=== PATIENT | female | born 1965 | race Caucasian/White ===

== ENCOUNTER 2016-07-23 09:45 | Emergency (ER) | payer SELFPAY ==
[2016-07-23 10:25] VITALS: BP 118/60
--- NOTE | 2016-07-23 10:59 | UC ---
FLU HPI - HPI Summary HPI Summary: 2 DAYS OF BODY ACHES, COUGH, CONGESTION, ST, [place]O AND LOOSE STOOLS. LOW GRADE FEVER HERE TODAY. FEELS "FOGGY". - History of Current Complaint Chief Complaint: UCGeneralIllness Stated Complaint: FLU LIKE COMPLAINT Time Seen by Provider: 07/23/16 10:37 Hx Obtained From: Patient Onset/Duration: Gradual Onset, Lasting Days, Still Present Severity Currently: Moderate Severity Initially: Moderate Pain Intensity: 8 Pain Scale Used: 0-10 Numeric Associated Signs & Symptoms: Positive: Fever, Myalgia, Cough, Sore Throat, Nasal Congestion, Headache, Diarrhea - Allergy/Home Medications Allergies/Adverse Reactions: Allergies Allergy/AdvReac Type Severity Reaction Status Date / Time Cefprozil [From Cefzil] Allergy Intermediate Hives Verified 06/27/15 17:31 Amoxicillin Allergy Unknown Verified 06/14/15 23:43 Reaction Details Clavulanic Acid Allergy Unknown Verified 06/14/15 23:43 [From Augmentin] Reaction Details Home Medications: Home Medications Allergy Pill 07/23/16 [History] PMH/Surg Hx/FS Hx/Imm Hx Endocrine History Of: Reports: Thyroid Disease, Hypothyroidism Cancer History Of: Denies: Breast Cancer - Surgical History Surgical History: Yes Surgery Procedure, Year, and Place: HYSTERECTOMY. FOOT SURGERY. EYE SURGERY - Family History Known Family History: Negative: Hypertension - Social History Alcohol Use: Occasionally Substance Use Type: None Smoking Status (MU): Never Smoked Tobacco Review of Systems Constitutional: Fever, Fatigue ENT: Sore Throat, Nasal Discharge Respiratory: Cough Cardiovascular: Negative Gastrointestinal: Diarrhea Musculoskeletal: Myalgia Neurological: Headache All Other Systems Reviewed And Are Negative: Yes Physical Exam Triage Information Reviewed: Yes Appearance: Well-Appearing, No Pain Distress, Well-Nourished Vital Signs: Initial Vital Signs Temp 100.6 F 07/23/16 10:21 Pulse 83 07/23/16 10:21 Resp 18 07/23/16 10:21 BP 118/60 07/23/16 10:21 Pulse Ox 95 07/23/16 10:21 Vital Signs Reviewed: Yes Eyes: Positive: Conjunctiva Clear ENT: Positive: Hearing grossly normal, Pharynx normal, TMs normal Neck: Positive: Supple, Nontender, No Lymphadenopathy Respiratory Exam: Normal Cardiovascular Exam: Normal Abdomen Description: Positive: Soft Musculoskeletal: Positive: No Edema Neurological: Positive: Alert Psychological: Positive: Age Appropriate Behavior Skin: Negative: rashes Flu Course/Dx - Differential Dx/Diagnosis Provider Diagnoses: FLU-LIKE ILLNESS Discharge - Discharge Plan Condition: Stable Disposition: HOME Patient Education Materials: Influenza (ED) Forms: *Work Release Referrals: Jesus Hart DO [Primary Care Provider] - If Needed Additional Instructions: YOUR SYMPTOMS SHOULD START TO IMPROVE OVER THE NEXT WEEK. REST, HYDRATE, OTC MEDS NEEDED FOR FEVER AND BODY ACHES. SEEK FOLLOW-UP IF NEEDED.
== END 2016-07-23 11:14 | disposition home or self-care (01) ==
LOC: UCEAST 09:45
DX: J11.1 Influenza due to unidentified influenza virus with other respiratory manifestations (principal); Z88.1 Allergy status to other antibiotic agents; Z88.0 Allergy status to penicillin
CPT/HCPCS: 99211; G0463

== ENCOUNTER 2017-01-19 17:23 | Emergency (ER) | payer BC ==
[2017-01-19 19:07] VITALS: BP 110/71
--- NOTE | 2017-01-19 19:45 | UC ---
Complaint Female HPI - HPI Summary HPI Summary: 51 yo female with painful labia sore x days no d/c no uti symptoms - History Of Current Complaint Chief Complaint: UCGU Stated Complaint: PERSONAL Time Seen by Provider: 01/19/17 18:46 Hx Obtained From: Patient Onset/Duration: Gradual Onset, Lasting Days Timing: Constant Severity Initially: Mild Severity Currently: Severe Pain Intensity: 8 Pain Scale Used: 0-10 Numeric Character: Sharp Aggravating Factor(s): Movement Alleviating Factor(s): Position Associated Signs And Symptoms: Positive: Genital Swelling - Allergies/Home Medications Allergies/Adverse Reactions: Allergies Allergy/AdvReac Type Severity Reaction Status Date / Time Cefprozil [From Cefzil] Allergy Intermediate Hives Verified 01/19/17 18:53 Amoxicillin Allergy Unknown Verified 01/19/17 18:53 Reaction Details Clavulanic Acid Allergy Unknown Verified 01/19/17 18:53 [From Augmentin] Reaction Details Home Medications: Home Medications Etodolac 200 mg PO BID 01/19/17 [History Confirmed 01/19/17] Loratadine 10 mg PO DAILY 01/19/17 [History Confirmed 01/19/17] PMH/Surg Hx/FS Hx/Imm Hx Previously Healthy: Yes - lymphedema - Surgical History Surgical History: Yes Surgery Procedure, Year, and Place: HYSTERECTOMY. FOOT SURGERY. EYE SURGERY - Family History Known Family History: Negative: Hypertension, Diabetes - Social History Alcohol Use: Occasionally Substance Use Type: None Smoking Status (MU): Never Smoked Tobacco Review of Systems Constitutional: Negative Skin: Negative Eyes: Negative ENT: Negative Respiratory: Negative Cardiovascular: Negative Gastrointestinal: Negative Genitourinary: Negative Motor: Negative Neurovascular: Negative Musculoskeletal: Negative Neurological: Negative Psychological: Negative All Other Systems Reviewed And Are Negative: Yes Physical Exam Triage Information Reviewed: Yes Appearance: Well-Appearing, No Pain Distress, Well-Nourished Vital Signs: Initial Vital Signs Temp 97.1 F 01/19/17 18:54 Pulse 58 01/19/17 18:54 Resp 18 01/19/17 18:54 BP 110/71 01/19/17 18:54 Pulse Ox 100 01/19/17 18:54 Vital Signs Reviewed: Yes Eyes: Positive: Conjunctiva Clear ENT: Positive: Hearing grossly normal. Negative: Nasal congestion, Nasal drainage, Trismus, Muffled/hoarse voice Neck: Positive: Supple, Nontender Respiratory: Positive: Lungs clear, Normal breath sounds, No respiratory distress Cardiovascular: Positive: RRR, No Murmur Abdomen Description: Positive: Nontender, No Organomegaly, Soft, Other: - ext genitalia- bb sized area of swelling/erthema superior fourchette Musculoskeletal: Positive: ROM Intact, No Edema Neurological: Positive: Alert Psychological Exam: Normal Skin Exam: Normal Complaint Female Dx - Differential Dx/Diagnosis Provider Diagnoses: labial sore of uncertain cause Discharge - Discharge Plan Condition: Stable Disposition: HOME Prescriptions: HYDROcodone/ACETAMIN 5-325 MG* [[place] 5-325 TAB*] 1 tab PO Q4H PRN #15 tab MDD 4 PRN Reason: Pain Mupirocin 2% OINT* [Bactroban 2 % Oint*] 1 applic TOPICAL TID #1 tube ValACYclovir (*) [Valtrex 1 GM(*)] 1 gm PO BID #20 tab Referrals: Jesus Hart DO [Primary Care Provider] - Additional Instructions: I am unsure of the cause of the painful labia sore A swab for herpes is pending I suggest you see your cream dumper this week for recheck
== END 2017-01-19 19:51 | disposition home or self-care (01) ==
LOC: UCCORT 17:23
DX: N90.89 Other specified noninflammatory disorders of vulva and perineum (principal)
CPT/HCPCS: 87529; 99212; G0463